=== PATIENT | female | born 2000 | race African-American/Black ===

== ENCOUNTER 2021-01-05 14:14 | Emergency (ER) | payer OTHER ==
[~2021-01-05] VITALS: Ht 165.1 cm; Wt 59.0 kg
[2021-01-05 14:18] VITALS: BP 130/88
== END 2021-01-05 14:50 | disposition home or self-care (01) ==
LOC: ER 14:14
DX: U07.1 COVID-19 (principal); Z72.89 Other problems related to lifestyle